=== PATIENT | male | born 1980 | race Caucasian/White ===

== ENCOUNTER 2016-12-10 06:26 | Emergency (ER) | payer SELFPAY ==
[2016-12-10] MEDS ORDERED: NORMAL SALINE 1000 ML 1,000 ML IV ONE (07:28)
--- NOTE | 2016-12-10 07:42 | ER Document Report ---
ED GI/ - General Chief Complaint: Abdominal Pain Stated Complaint: ABDOMINAL PAIN Mode of Arrival: Ambulatory Information source: Patient Notes: 35-year-old male presents to the emergency department complaining of abdominal pain over the last 2 days. Patient reports sharp/achy pain to mid and left lower quadrant abdomen. Reports two associated episodes of nausea/vomiting one yesterday and one this morning. States usually has daily bowel movement and did not have one 2 days ago so took a dose of [id number] Ex-Lax which caused him to have a bowel movement but pain persisted. Reports had similar symptoms approximately 3 weeks ago and was diagnosed with constipation. Denies fever, chest pain, shortness of breath, blood in emesis or stool. TRAVEL OUTSIDE OF THE [place] IN LAST 30 DAYS: No - HPI Patient complains to provider of: Abdominal pain, Vomiting Timing/Duration: Gradual, Persistent Quality of pain: Achy Severity at maximum: Moderate Severity in ED: Moderate Pain Level: 3 Associated symptoms: denies: Blood in emesis, Blood in stool, Coffee ground emesis, Dysuria, Fever, Hematuria Similar symptoms previously: Yes Recently seen / treated by doctor: No - Related Data Allergies/Adverse Reactions: No Known Allergies Allergy (Verified 12/10/16 06:43) Past Medical History - General Information source: Patient - Social History Smoking Status: Never Smoker Frequency of alcohol use: None Drug Abuse: None Lives with: Family Family History: Reviewed & Not Pertinent - Medical History Medical History: Negative Surgical Hx: Negative - Immunizations Hx Diphtheria, Pertussis, Tetanus Vaccination: Yes Review of Systems - Review of Systems Constitutional: No symptoms reported EENT: No symptoms reported Cardiovascular: No symptoms reported Respiratory: No symptoms reported Gastrointestinal: See HPI Genitourinary: No symptoms reported Male Genitourinary: No symptoms reported Musculoskeletal: No symptoms reported Skin: No symptoms reported Hematologic/Lymphatic: No symptoms reported Neurological/Psychological: No symptoms reported -: Yes All other systems reviewed and negative Physical Exam - Vital signs Vitals: Temp Pulse Resp BP Pulse Ox 97.9 F 62 18 138/88 H 100 12/10/16 06:42 12/10/16 06:42 12/10/16 06:42 12/10/16 06:42 12/10/16 06:42 Interpretation: Normal - General General appearance: Appears well, Alert In distress: None - HEENT Head: Normocephalic, Atraumatic Eyes: Normal Pupils: PERRL - Respiratory Respiratory status: No respiratory distress Chest status: Nontender Breath sounds: Normal Chest palpation: Normal - Cardiovascular Rhythm: Regular Heart sounds: Normal auscultation Murmur: No Pulses: Normal: Radial Normal capillary refill: Yes - Abdominal Inspection: Normal Distension: No distension Bowel sounds: Normal Tenderness: Tender - Mild diffuse abdominal tenderness to palpation appears most tender to mid and left lower quadrant. No: Nontender, McBurney's point, Leslie's sign, Guarding, Rebound, Other Organomegaly: No organomegaly - Back Back: Normal, Nontender - Extremities General upper extremity: Normal inspection, Nontender, Normal color, Normal ROM , Normal temperature General lower extremity: Normal inspection, Nontender, Normal color, Normal ROM , Normal temperature, Normal weight bearing. No: Louis's sign - Neurological Neuro grossly intact: Yes Cognition: Normal Orientation: AAOx4 [place] Coma Scale Eye Opening: Spontaneous [place] Coma Scale Verbal: Oriented [place] Coma Scale Motor: Obeys Commands [place] Coma Scale Total: 15 Speech: Normal Motor strength normal: LUE, RUE, LLE, RLE Sensory: Normal - Psychological Associated symptoms: Normal affect, Normal mood - Skin Skin Temperature: Warm Skin Moisture: Dry Skin Color: Normal Skin Turgor: Elastic Course - Re-evaluation Re-evalutation: 12/10/16 10:28 Pt hemodynamically stable, in no distress, afebrile. Tolerating oral fluids without difficulty or vomiting after dose of Zofran. CT scan with no abnormal findings on labs unremarkable.The patient presents with abdominal pain without signs of peritonitis or other life-threatening or serious etiology. The patient appears stable for discharge and has been instructed to return immediately if the symptoms worsen in any way, or in 8-12hr if not improved for re-evaluation, agrees with home care, follow-up, and ED return precautions. - Vital Signs Vital signs: Temp Pulse Resp BP Pulse Ox 97.5 F 92 16 127/87 H 100 12/10/16 10:45 12/10/16 10:45 12/10/16 10:45 12/10/16 10:45 12/10/16 10:45 - Laboratory Result Diagrams: 12/10/16 07:55 12/10/16 07:55 Laboratory results interpreted by me: 12/10/16 12/10/16 07:35 07:55 Seg Neutrophils % 86.2 H Lymphocytes % 8.4 L Absolute Neutrophils 8.3 H Urine Ketones 20 H Urine Blood SMALL H - Diagnostic Test Radiology reviewed: Image reviewed, Reports reviewed Discharge - Discharge Clinical Impression: Abdominal pain Qualifiers: Abdominal location: generalized Qualified Code(s): R10.84 - Generalized abdominal pain Condition: Stable Disposition: HOME, SELF-CARE Instructions: Family Physicians / Practices Additional Instructions: ABDOMINAL PAIN: There are many causes of abdominal pain. Pain can mean a serious problem requiring surgery (such as appendicitis). It can also be an innocent problem that goes away on its own (such as a viral infection). Often, time must pass to determine the cause of pain. The physician does not feel that hospitalization is necessary, at present. Things may change within the next 24 hours. Call the doctor or come back for re- examination if any problems occur, such as: (1) Pain that becomes more severe, steady, or becomes concentrated in one specific area. Also, pain that is more severe with movement or coughing. (2) Vomiting that persists or becomes more frequent. (3) Blood in the vomitus, urine, or bowel movements. Blood in the stool may have a tarry or black appearance. (4) Shaking chills or fever greater than 100 degrees F. (5) The abdomen becomes more distended or swollen. (6) Bowel movements cease. (7) Failure to improve as expected. Vomiting Vomiting can be part of many illnesses. Most cases of vomiting are due to gastroenteritis, usually a viral infection in the intestinal tract. There is no specific treatment. The disease will end by itself. For now, the main danger to your child is dehydration. During the first few hours of the illness, give clear liquids, such as Pedialyte. Try to give small quantities frequently, such as a teaspoon of liquid every minute or about an ounce of fluids every five to ten minutes. Medications may be prescribed by the physician for special cases. After an hour or two of fluids without vomiting, add rice cereal, toast, applesauce, or bananas and other more solid foods to the clear liquids. It's important to avoid dehydration. Sip small amounts of clear liquids (soft drinks, tea, broth, etc) . Try to take fluids frequently even if you are vomiting to prevent dehydration. Take increasing amounts of fluid and when liquids are being consumed successfully, advance to small amounts of bland food (toast, soups, mashed potatoes, etc.) until you are able to resume a regular diet. Avoid aspirin, tobacco, and alcohol. If the vomiting worsens, if the problem that's making you vomit worsens, or if there's evidence of bleeding in the stomach (such as black, tarry stool, or bloody or black vomit), you should return immediately. Also, return if abdominal pain worsens or becomes localized to one area or you develop high fever. Call your doctor if you aren't improved in 24 hours. Antinausea Medication You have been given a medication to suppress nausea and vomiting. This type of medication can be given as a shot, pill, or suppository. It will usually last for many hours. Pills and shots usually last six to eight hours, suppositories last about 12 hours. For the typical illness, only one or two doses of the medication may be necessary. Mild lightheadedness may occur. This type of medicine can cause drowsiness. Do not drive or operate dangerous machinery while under its influence. Do not mix with alcohol. See your doctor at once if you have muscle spasms or tightness, or uncontrollable motions (particularly of the neck, mouth, or jaw). Persistent vomiting or severe lightheadedness should also be evaluated by the physician. Antacid Therapy You have been instructed to start antacid therapy. Antacids directly neutralize stomach acid. This is useful for acid irritation of the esophagus, gastritis, and ulcers. You should take two tablespoons of antacid one hour after each meal and three hours after each meal. If you are not eating, take the antacid every two hours. If you are using a concentrate (such as Maalox TC), use only one tablespoon. Many antacids affect the bowels. The most common problem is diarrhea. In this case, a pure aluminum hydroxide antacid (such as AlternaGel) can be substituted for some or all doses. If the problem is constipation, add a teaspoon of Milk of Magnesia to each dose. Call the doctor if you experience continued diarrhea or constipation, or if you develop lightheadedness, bloody stool or vomitus, severe abdominal pain, or black stool. FOLLOW-UP CARE: Follow-up with your primary care provider this week. Return to the emergency department for any worsening symptoms or concerns. Prescriptions: Promethazine HCl [Phenergan 25 mg Tablet] 25 mg PO Q6H PRN #10 tablet PRN Reason: Forms: Elevated Blood Pressure Referrals: [facility] [NO LOCAL MD] - Follow up tomorrow
[2016-12-10 08:01] LABS: APPEARANCE,URINE CLEAR; BILIRUBIN,URINE NEGATIVE (NEGATIVE); GLUCOSE, URINE NEGATIVE (NEGATIVE); KETONES,URINE 20 mg/dL (NEGATIVE); LEUKOCYTE ESTERASE,URINE NEGATIVE (NEGATIVE); NITRITE,URINE NEGATIVE (NEGATIVE); PROTEIN,URINE NEGATIVE (NEGATIVE); URINE SPECIFIC GRAVITY 1.017; UROBILINOGEN,URINE NEGATIVE mg/dL (<2.0)
[2016-12-10] MEDS ORDERED: ONDANSETRON HCL INJ/PF 4 MG/2 ML SDV IV ONE (08:01)
[2016-12-10 08:22] LABS: ABSOLUTE LYMPHOCYTES (AUTO) 0.8 10^3/uL (0.5-4.7); ABSOLUTE MONOCYTES (AUTO) 0.5 10^3/uL (0.1-1.4); ABSOLUTE NEUT (AUTO) 8.3 10^3/uL (1.7-8.2); BASOPHILS % (AUTO) 0.4 % (0-2); EOSINOPHILS % (AUTO) 0.2 % (0-6); HEMATOCRIT 46.2 % (37.9-51.0); HEMOGLOBIN 15.9 g/dL (13.5-17.0); HGB HCT DIFFERENCE 1.5; LYMPHOCYTES % (AUTO) 8.4 % (13-45); MEAN CORPUSCULAR HEMOGLOBIN 31.5 pg (27.0-33.4); MEAN CORPUSCULAR HGB CONC 34.4 g/dL (32.0-36.0); MEAN CORPUSCULAR VOLUME 92 fl (80-97); MONOCYTES % (AUTO) 4.8 % (3-13); RED BLOOD COUNT 5.05 10^6/uL (4.35-5.55); RED CELL DISTRIBUTION WIDTH 12.7 % (11.5-14.0); SEGMENTED NEUTROPHILS % (AUTO) 86.2 % (42-78); WHITE BLOOD COUNT 9.6 10^3/uL (4.0-10.5)
[2016-12-10 08:31] LABS: ALANINE AMINOTRANSFERASE 40 U/L (21-72); ALBUMIN 4.4 g/dL (3.5-5.0); ALKALINE PHOSPHATASE 53 U/L (38-126); ANION GAP 13 (5-19); ASPARTATE AMINO TRANSFERASE 23 U/L (17-59); BILIRUBIN,TOTAL 0.8 mg/dL (0.2-1.3); BLOOD UREA NITROGEN 17 mg/dL (7-20); CALCIUM 9.7 mg/dL (8.4-10.2); CARBON DIOXIDE 27 mmol/L (22-30); CHLORIDE 100 mmol/L (98-107); CREATININE RESULT 0.86 mg/dL (0.52-1.25); GLUCOSE 104 mg/dL (75-110); SODIUM 140.4 mmol/L (137-145); TOTAL PROTEIN 7.2 g/dL (6.3-8.2)
[2016-12-10] MEDS ORDERED: METOCLOPRAMIDE HCL ORAL SOLN 10 MG/10 ML UDCUP PO ONE (09:59)
[2016-12-10] MEDS ORDERED: MAG HYDROX/AL HYDROX/SIMETH SUSP 30 ML UDCUP PO ONE (09:59)
[2016-12-10] MEDS ORDERED: LIDOCAINE 2% VISCOUS SOLN 20 ML UDCUP PO ONE (09:59)
[2016-12-10 10:47] VITALS: BP 127/87
== END 2016-12-10 10:46 | disposition home or self-care (01) ==
LOC: ER 06:26
DX: R10.84 Generalized abdominal pain (principal); R10.817 Generalized abdominal tenderness; R11.2 Nausea with vomiting, unspecified; R19.4 Change in bowel habit; Z87.19 Personal history of other diseases of the digestive system
CPT/HCPCS: 99284; 96374; 36415; 83690; 85025; 80053; 81001; 74177; J3490; J2405; J7030

== ENCOUNTER 2017-04-22 13:54 | Emergency (ER) | payer SELFPAY ==
[2017-04-22 14:09] VITALS: BP 132/78
--- NOTE | 2017-04-22 14:45 | ER Document Report ---
ED Skin Rash/Insect Bite/Abscs - General Chief Complaint: Skin Problem Stated Complaint: FINGER PAIN Time Seen by Provider: 04/22/17 14:23 Mode of Arrival: Ambulatory Information source: Patient Notes: 36-year-old presents to ED for infection at the site of the left index finger. States he bites his nails and he has noticed the finger has become red and swollen and painful in the last couple days. He states he did get some drainage out when he poked it with a needle. TRAVEL OUTSIDE OF THE [place] IN LAST 30 DAYS: No - HPI Patient complains to provider of: Tender/swollen area Onset: Other - Couple days Onset/Duration: Gradual Quality of pain: Throbbing Severity: Mild Pain Level: 2 Skin Character: Abscess Skin Temperature: Warm Quality of rash: Painful Exacerbated by: Movement Relieved by: Denies Similar symptoms previously: Yes Recently seen / treated by doctor: No - Related Data Allergies/Adverse Reactions: No Known Allergies Allergy (Verified 12/10/16 06:43) Past Medical History - General Information source: Patient - Social History Smoking Status: Never Smoker Cigarette use (# per day): No Chew tobacco use (# tins/day): No Smoking Education Provided: No Frequency of alcohol use: Rare Drug Abuse: None Occupation: vacuum truck driver Lives with: Alone Family History: Arthritis, CAD, CVA, Hyperlipidemia, Hypertension, Malignancy Patient has suicidal ideation: No Patient has homicidal ideation: No - Past Medical History Cardiac Medical History: Reports: None Pulmonary Medical History: Reports: None EENT Medical History: Reports: None Neurological Medical History: Reports: None Endocrine Medical History: Reports: None Renal/ Medical History: Reports: None Malignancy Medical History: Reports None GI Medical History: Reports: None Musculoskeltal Medical History: Reports None Skin Medical History: Reports None Psychiatric Medical History: Reports: None Traumatic Medical History: Reports: None Infectious Medical History: Reports: None Surgical Hx: Negative Past Surgical History: Reports: None - Immunizations Hx Diphtheria, Pertussis, Tetanus Vaccination: Yes Review of Systems - Review of Systems Constitutional: No symptoms reported EENT: No symptoms reported Cardiovascular: No symptoms reported Respiratory: No symptoms reported Gastrointestinal: No symptoms reported Genitourinary: No symptoms reported Male Genitourinary: No symptoms reported Musculoskeletal: No symptoms reported Skin: Other - Paronychia left index finger Hematologic/Lymphatic: No symptoms reported Neurological/Psychological: No symptoms reported -: Yes All other systems reviewed and negative Physical Exam - Vital signs Vitals: Temp Pulse Resp BP Pulse Ox 98.6 F 76 16 132/78 H 97 04/22/17 14:07 04/22/17 14:07 04/22/17 14:07 04/22/17 14:07 04/22/17 14:07 Interpretation: Normal - General General appearance: Appears well, Alert - HEENT Head: Normocephalic, Atraumatic Eyes: Normal Pupils: PERRL - Respiratory Respiratory status: No respiratory distress Chest status: Nontender Breath sounds: Normal Chest palpation: Normal - Cardiovascular Rhythm: Regular Heart sounds: Normal auscultation Murmur: No - Abdominal Inspection: Normal Distension: No distension Bowel sounds: Normal Tenderness: Nontender Organomegaly: No organomegaly - Back Back: Normal, Nontender - Extremities General upper extremity: Normal color, Normal ROM, Normal temperature General lower extremity: Normal inspection, Nontender, Normal color, Normal ROM , Normal temperature, Normal weight bearing. No: Louis's sign Hand: Tender, No evidence of human bite, No evidence of FB, Swelling, Other - Paronychia left index finger. No: Normal, Nontender, Abrasion, Deformity, Dislocation, Ecchymosis, Instability, Nail injury, Laceration, Tendon deficit - Neurological Neuro grossly intact: Yes Cognition: Normal Orientation: AAOx4 [place] Coma Scale Eye Opening: Spontaneous [place] Coma Scale Verbal: Oriented [place] Coma Scale Motor: Obeys Commands [place] Coma Scale Total: 15 Speech: Normal Motor strength normal: LUE, RUE, LLE, RLE Sensory: Normal - Psychological Associated symptoms: Normal affect, Normal mood - Skin Skin Temperature: Warm Skin Moisture: Dry Skin Color: Normal Location of irregularity: Other - Paronychia left index finger Course - Vital Signs Vital signs: Temp Pulse Resp BP Pulse Ox 98.6 F 76 16 132/78 H 97 04/22/17 14:07 04/22/17 14:07 04/22/17 14:07 04/22/17 14:07 04/22/17 14:07 Procedures - Incision and Drainage Left Finger 2nd digit Type: Simple Anesthetic type: Other - None mL's of anesthetic: 0 Blade size: Other - 18-gauge needle I&D procedure: Betadine prep applied Incision Method: Incision made with needle Amount/type of drainage: small Discharge - Discharge Clinical Impression: Paronychia of left index finger Condition: Stable Disposition: HOME, SELF-CARE Instructions: Family Physicians / Practices Additional Instructions: Paronychia You have an infection between the nail and the surrounding skin, called a paronychia. The germs infect the area after a minor skin injury, such as a hangnail. This infection is treated by releasing the pus. This is usually done by the skin from the nail. If the infection has spread underneath the nail, partial removal of the nail may be necessary. Hot-soak the area three or four times daily. Antibiotics are often given, but are not always necessary. Healing takes about a week. If pain or swelling becomes severe or if you develop fever or chills, call the doctor or return for re-examination. Cephalexin The antibiotic you've been prescribed is a member of the cephalosporin class. This type of antibiotic covers a wide variety of infections, including those of the skin, lungs, and urinary tract. It's useful for staph infections. This antibiotic is slightly similar to the penicillin family. In rare cases , a person who is allergic to penicillin will also be allergic to this medication. If you have had a severe allergic reaction to penicillin, and have not taken this antibiotic since that time, notify your doctor. Antibiotics which cover many germs ("broad spectrum" antibiotics) are more likely to cause diarrhea or "yeast" infections. Women prone to vaginal yeast problems may suffer an attack after taking this antibiotic. In infants, oral thrush (white spots "stuck" on the cheek) or yeast diaper rash may result. See your doctor if these problems occur. Call at once if you develop itching, hives , shortness of breath, or lightheadedness. Acetaminophen Acetaminophen may be taken for pain relief or fever control. It's much safer than aspirin, offering a wider range of "safe" dosages. It is safe during . Some brand names are Tylenol, Panadol, Datril, Anacin 3, Tempra, and Liquiprin. Acetaminophen can be repeated every four hours. The following are maximum recommended dosages: WEIGHT Dose Drops Elixir Chewable( 80mg) (LBS.) drprs=droppers tsp=teaspoon 6 40 mg .4 ml (1/2) 6-11 80 mg .8 ml (full) 1/2 tsp 1 tab 12-16 120 mg 1 1/2 drprs 3/4 tsp 1 1/2 tabs 17-23 160 mg 2 drprs 1 tsp 2 tabs 24-30 240 mg 3 drprs 1 1/2 tsp 3 tabs 30-35 320 mg 2 tsp 4 tabs 36-41 360 mg 2 1/4 tsp 4 1 /2 tabs 42-47 400 mg 2 1/2 tsp 5 tabs 48-53 480 mg 3 tsp 6 tabs 54-59 520 mg 3 1/4 tsp 6 1 /2 tabs 60-64 560 mg 3 1/2 tsp 7 tabs 65-70 600 mg 3 3/4 tsp 7 1 /2 tabs 71-76 640 mg 4 tsp 8 tabs 77-82 720 mg 4 1/2 tsp 9 tabs 83-88 800 mg 5 tsp 10 tabs >89 pounds or adults 650 mg to 900 mg Acetaminophen can be repeated every four hours. Maximum daily dose not to exceed 4000 mg. These maximum recommended dosages are slightly higher than the dosages written on the product container, but these dosages are very safe and well below the toxic dosage for acetaminophen. Epsom Salt Soaks Soak the wound area in a container of warm epsom salt water. If you can't get the wound area into a bucket or villafana, use a folded towel soaked in the epsom salt solution and apply to the area. Use clean hot tap water (about the temperature of a very warm bath), mixing in about one (1) teaspoon for every pint of water. Two gallon --> 16 teaspoons Epsom Salts One gallon --> 8 teaspoons Epsom Salts Two quarts --> 4 teaspoons Epsom Salts One quart --> 2 teaspoons Epsom Salts Soak the wound for about 20 minutes while gently moving it around in the water. Repeat this four (4) times a day. FOLLOW-UP CARE: If you have been referred to a physician for follow-up care, call the physician s office for an appointment as you were instructed or within the next two days. If you experience worsening or a significant change in your symptoms, notify the physician immediately or return to the Emergency Department at any time for re-evaluation. Prescriptions: Cephalexin Monohydrate [Keflex 500 mg Capsule] 500 mg PO QID #20 capsule Forms: Elevated Blood Pressure, Return to Work
== END 2017-04-22 15:29 | disposition home or self-care (01) ==
LOC: ER 13:54
PROC: 0H9GXZZ Drainage of Left Hand Skin, External Approach (ICD-10-PCS; principal; 2017-04-22)
DX: L03.012 Cellulitis of left finger (principal); F98.8 Other specified behavioral and emotional disorders with onset usually occurring in childhood and adolescence
CPT/HCPCS: 99283

== ENCOUNTER 2018-01-02 13:22 | Emergency (ER) | payer BC ==
--- NOTE | 2018-01-02 15:19 | ER Document Report ---
ED General - General Chief Complaint: Abdominal Pain Stated Complaint: ABDOMINAL PAIN Time Seen by Provider: 01/02/18 15:18 TRAVEL OUTSIDE OF THE [place] IN LAST 30 DAYS: No - HPI Patient complains to provider of: Abdominal pain, constipation Onset: Last week Onset/Duration: Gradual Quality of pain: Fullness Severity: Moderate Pain Level: 3 Associated symptoms: Nausea Exacerbated by: Denies Relieved by: Denies Similar symptoms previously: Yes - Patient suffers from chronic constipation Notes: 37-year-old male with chronic constipation presents no bowel movement 4 days mild nausea. Patient still tolerating some oral intake. Has had multiple CAT scans in the past never obstruction no surgical resolution. Does not take any bowel regimen at home - Related Data Allergies/Adverse Reactions: No Known Allergies Allergy (Verified 01/02/18 13:28) Past Medical History - Social History Smoking Status: Unknown if Ever Smoked Family History: Arthritis, CAD, CVA, Hyperlipidemia, Hypertension, Malignancy Renal/ Medical History: Denies: Hx Peritoneal Dialysis - Immunizations Hx Diphtheria, Pertussis, Tetanus Vaccination: Yes Review of Systems - Review of Systems Constitutional: No symptoms reported EENT: No symptoms reported Cardiovascular: No symptoms reported Respiratory: No symptoms reported Gastrointestinal: Abdominal pain, Nausea, Constipation Genitourinary: No symptoms reported Male Genitourinary: No symptoms reported Musculoskeletal: No symptoms reported Skin: No symptoms reported Hematologic/Lymphatic: No symptoms reported Neurological/Psychological: No symptoms reported Physical Exam - Vital signs Vitals: Temp Pulse Resp BP Pulse Ox 99.0 F 83 16 149/93 H 99 01/02/18 13:30 01/02/18 13:30 01/02/18 13:30 01/02/18 13:30 01/02/18 13:30 Interpretation: Normal - General General appearance: Appears well, Alert - HEENT Head: Normocephalic, Atraumatic Eyes: Normal Pupils: PERRL - Respiratory Respiratory status: No respiratory distress Chest status: Nontender Breath sounds: Normal Chest palpation: Normal - Cardiovascular Rhythm: Regular Heart sounds: Normal auscultation Murmur: No - Abdominal Inspection: Normal Distension: No distension Bowel sounds: Normal Tenderness: Nontender Organomegaly: No organomegaly - Back Back: Normal, Nontender - Extremities General upper extremity: Normal inspection, Nontender, Normal color, Normal ROM , Normal temperature General lower extremity: Normal inspection, Nontender, Normal color, Normal ROM , Normal temperature, Normal weight bearing. No: Louis's sign - Neurological Neuro grossly intact: Yes Cognition: Normal Orientation: AAOx4 [place] Coma Scale Eye Opening: Spontaneous [place] Coma Scale Verbal: Oriented [place] Coma Scale Motor: Obeys Commands [place] Coma Scale Total: 15 Speech: Normal Motor strength normal: LUE, RUE, LLE, RLE Sensory: Normal - Psychological Associated symptoms: Normal affect, Normal mood - Skin Skin Temperature: Warm Skin Moisture: Dry Skin Color: Normal Course - Re-evaluation Re-evalutation: 01/02/18 15:28 Well-appearing man in no acute distress reassuring abdominal exam. 01/02/18 16:02 Imaging study shows no obstruction, afebrile stable vital signs within normal limits. Given fluid resuscitation and antiemetics. Also given initial dose MiraLAX. Will be discharged home with more antiemetics, MiraLAX follow-up with family doctor return if anything changes - Vital Signs Vital signs: Temp Pulse Resp BP Pulse Ox 99.0 F 83 16 149/93 H 99 01/02/18 13:30 01/02/18 13:30 01/02/18 13:30 01/02/18 13:30 01/02/18 13:30 - Diagnostic Test Radiology reviewed: Image reviewed, Reports reviewed Discharge - Discharge Clinical Impression: Constipation Qualifiers: Constipation type: chronic idiopathic constipation Qualified Code(s): K59.04 - Chronic idiopathic constipation Condition: Stable Disposition: HOME, SELF-CARE Instructions: Constipation ([facility])
[2018-01-02] MEDS ORDERED: ONDANSETRON HCL INJ/PF 4 MG/2 ML SDV IV ONE (15:26)
[2018-01-02] MEDS ORDERED: POLYETHYLENE GLYCOL 3350 POWDER 17 GM/1 PACKET PO ONE (15:26)
[2018-01-02] MEDS ORDERED: NORMAL SALINE 1000 ML 1,000 ML IV ONE (15:26)
--- NOTE | 2018-01-02 16:01 | RADIOLOGY REPORT (SQ) ---
EXAM DESCRIPTION: ACUTE ABDOMEN SERIES COMPLETED DATE/TIME: 01/02/2018 3:50 pm REASON FOR STUDY: constipation COMPARISON: None. NUMBER OF VIEWS: Three views. TECHNIQUE: Frontal chest, supine abdomen and uprightabdomen radiographic images acquired. LIMITATIONS: None. FINDINGS: CHEST: Lung palomares are clear. The heart is normal. The pulmonary vasculature is normal. The bony structures are intact. No pneumoperitoneum. BOWEL GAS PATTERN: Scattered gas within large and small bowel in a nonspecific pattern. CALCIFICATIONS: No suspicious calcifications. SOFT TISSUES: No gross mass or suggestion of organomegaly. BONES: No acute fracture. No worrisome bone lesions. OTHER: No other significant finding. IMPRESSION: Nonspecific bowel-gas pattern. TECHNICAL DOCUMENTATION: JOB ID: [id number] [employer]- All Rights Reserved
[2018-01-02 17:11] VITALS: BP 127/79
== END 2018-01-02 17:13 | disposition home or self-care (01) ==
LOC: ER 13:22
DX: K59.04 Chronic idiopathic constipation (principal); R10.9 Unspecified abdominal pain; R11.0 Nausea
CPT/HCPCS: 99284; 96361; 96374; 74022; J3490; J2405; J7030